=== PATIENT | female | born 1970 | race Caucasian/White ===

== ENCOUNTER 2016-05-22 06:11 | Observation (INO) ==
[2016-05-22] MEDS ORDERED: Clindamycin 900 MG/50 ML 900 MG/50 ML IV.SOLN IVPB ONE (06:26)
[2016-05-22] MEDS ORDERED: Ringers Solution, Lactated 1,000 ML IVC SCH (06:30)
--- NOTE | 2016-05-22 07:02 | Anesthesia Evaluation PreOp ---
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 FIBERGLASS History: Denies Any Significant HX Other Medical History: Denies Any Significant HX Anesthesia History: No Prior Anesthetic Complications, Past Anesthesia (D&C x2, mild nausea) Alcohol Use: none Drug use: none Medications and Allergies Norgestimate-Ethinyl Estradiol [Sprintec 28 Day Tablet] 1 tab PO DAILY 05/22/16 [History] Olmesartan Medoxomil [Benicar] 7.5 mg PO DAILY 05/22/16 [History] Simvastatin [Zocor] 10 mg PO HS 05/22/16 [History] Allergies Penicillins [PCN] Allergy (Mild, Verified 05/22/16 06:52) Hives sulfamethoxazole [From Bactrim] Allergy (Mild, Verified 05/22/16 06:52) Hives trimethoprim [From Bactrim] Allergy (Mild, Verified 05/22/16 06:52) Hives hydrochlorothiazide Adverse Reaction (Verified 05/22/16 06:52) Dizziness Increase blood pressure, - Meds/Allergy Pre-op Review Medications Reviewed: Yes Allergies Reviewed: Yes Beta Blockers on Current Med List: No Anesthesia Results - Labs Laboratory Tests 02/22/15 02/22/15 05/15/16 08:50 08:50 11:20 Hgb 13.3 Hct 38.4 Plt Count 298 Sodium 139 Potassium 4.1 BUN 9 Creatinine 0.75 - Imaging EKG: report reviewed (nsr) Anesthesia Exam Selected Entries 05/22/16 06:29 Temperature 98.1 F Pulse Rate 109 Respiratory Rate 20 Blood Pressure 157/73 O2 Sat by Pulse Oximetry 99 Height: 62in Weight: 121lbs NPO (# of Hours): 8 Pain Scale: 0 Pain Scale Used: Numeric (1 - 10) - HEENT Pupil (Motor): EOMI Mallampati: II Teeth: Normal Oral Opening: Greater than 3 - QUALITY TECHNICIAN FIBERGLASS LOC: Oriented QUALITY TECHNICIAN FIBERGLASS Motor: Normal RUE, Normal LUE, Normal RLE, Normal LLE, Normal Face QUALITY TECHNICIAN FIBERGLASS Sensory: Normal: RUE, LUE, RLE, LLE, Face - Cardiac Rhythm: Regular Murmur: None - Pulmonary Breath Sounds: bilateral Clear Respiratory Effort: Symmetrical Anesthesia Assess/Plan ASA Score: 1 Modified Yesica Scale for Level of Consciousness: Cooperative, oriented, and tranquil Anesthetic Plan: General Monitoring Plan: Standard Monitors Recovery Plan: PACU (Discussed risks of GA, questions answered, agrees to proceed.)
[2016-05-22] MEDS ORDERED: Ondansetron 4 MG/2 ML VIAL ONE (07:09)
[2016-05-22] MEDS ORDERED: *HR* Midazolam HCl 2 MG/2 ML VIAL ONE (07:09)
[2016-05-22] MEDS ORDERED: *HR* Phenylephrine 10 MG/ML VIAL ONE (07:09)
[2016-05-22] MEDS ORDERED: *HR* FentaNYL (PF) 100 MCG/2 ML VIAL ONE (07:09)
[2016-05-22] MEDS ORDERED: Dexamethasone 4 MG/ML VIAL ONE (07:09)
[2016-05-22] MEDS ORDERED: *HR* Succinylcholine 200 MG/10 ML VIAL IVP ONE (07:09)
[2016-05-22] MEDS ORDERED: *HR* Propofol 200 MG/20 ML VIAL IVP ONE (07:09)
[2016-05-22] MEDS ORDERED: Lidocaine -MPF 2% 2 ML VIAL ONE (07:09)
[2016-05-22] MEDS ORDERED: *HR* Rocuronium Bromide 50 MG/5 ML VIAL ONE (07:09)
[2016-05-22] MEDS ORDERED: *HR* Belladonna Alkaloids/Opium 30 MG RECTAL SUPPOSITORY RC ONE (07:24)
[2016-05-22] MEDS ORDERED: Bupivacaine/EPI 1:200k 0.25%PF 30 ML VIAL ONE (07:25)
--- NOTE | 2016-05-22 07:28 | History & Physical Report ---
Date of Encounter: 05/22/16 Time of Encounter: 07:27 24 Hour HP Update - Instructions Instructions: If the History and Physical is less than 30 days old and was completed prior to A.M. admission and or procedure and has NOT been updated on calendar day of procedure please complete this update prior to performing procedure. - Update Patient reports changes in Medical Condition: No Changes in assessment/condition: No Changes in Medication: No Preop tests/diagnostics Reviewed: Yes Surgery Remains Indicated: Yes Consent for Planned Operative Procedure(s) Verified: Yes - Pre-Operative Checklist Preoperative Checklist Indicated: Yes Prophylactic Antibiotic Ordered: Yes Home Medications Include Beta Donaldo: No Beta Donaldo Taken Today (Day of Surgery): No Beta Donaldo Taken Yesterday (Day Prior to Surgery): No Is VTE Prophylaxis Indicated?: Yes - Attending Attestation maurice gonzalez md facog
[2016-05-22] MEDS ORDERED: *HR* Morphine Sulfate/PF 10 MG/10 ML AMPUL ONE (07:53)
[2016-05-22] MEDS ORDERED: *HR* HYDROmorphone (PF) 1 MG/ML SYRINGE IVP PRN (08:21)
[2016-05-22] MEDS ORDERED: Ondansetron 4 MG/2 ML VIAL IVP ONE (08:21)
[2016-05-22] MEDS ORDERED: *HR* Morphine 2 MG/ML SYRINGE IVP PRN (08:21)
[2016-05-22] MEDS ORDERED: *HR* Promethazine 25 MG/ML VIAL IVP PRN (08:21)
[2016-05-22] MEDS ORDERED: Ketorolac 30 MG/ML VIAL ONE (08:40)
[2016-05-22] MEDS ORDERED: Neostigmine Methylsulfate 3 MG/3 ML SYRINGE ONE (08:40)
--- NOTE | 2016-05-22 09:47 | OB/GYN Procedure Note ---
Hysterectomy - Diagnosis Date of procedure: 05/22/16 Hysterectomy pre-op: abnormal uterine bleeding, symptomatic leiomyomata, symptomatic prolapse, other (Adenomyosis) Post-op diagnosis: same - Procedure Hysterectomy procedure: lap assisted vaginal hysterectomy, right salpingo oophorectomy, other (LEFT salpingectomy) Surgeon: Bonifacio Lerma Imagery Intelligence: Terri Haddad Anesthesia provider: Jose Bishop Anesthesia Type: Spinal (GETA) Estimated blood loss (cc): 300 Complications: none Fluids: crystalloid Urine output (cc): 300 Specimens: right ovary, uterus, cervix, right fallopian tube, left fallopian tube Findings: Areas consistent with adenomyosis were noted on the fundus of the uterus. The left fallopian tube and ovary appeared normal. The right fallopian tube was adherent to the right ovary. Appendix was retrocecal. Liver appeared normal. Disposition: PACU Narrative: Patient was taken to the operating room. After satisfactory anesthesia was achieved, she was placed in dorsolithotomy position and prepped and draped in usual manner. After appropriate timeout, Paieg catheter was inserted. Anterior lip of the cervix grasped single-toothed tenaculum. A Diego cannula was inserted. Pneumoperitoneum was created. Trochars were inserted. The infundibulopelvic ligament on the right side was coagulated and cut. This was carried across the round ligament was clamped and cut. Bladder flap created anteriorly. The left fallopian tube was removed and sent to pathology for analysis. Round ligaments coagulated and cut. Bladder flap created anteriorly. We then started the vaginal part of the procedure. Cervix was grasped with double-tooth tenaculums. Cervix was injected with Marcaine solution. Mucosa was incised circumferentially. Posterior cul-de-sac was entered. Uterosacral ligaments were clamped cut and suture-ligated with 0 Monocryl. Cardinal ligament pedicles were coagulated on both sides and cut. The anterior cul-de- sac was entered. The remainder of the broad ligament was coagulated. Uterus cervix and attached right adnexa were sent to pathology for analysis. The mucosa was closed with 0 Monocryl in a [id number] fashion. The pelvis is inspected and no bleeding was appreciated. Trochars were removed. Gas was removed. Incisions were closed with 3-0 Monocryl in a subcuticular manner. Sterile dressing was applied. Paige catheter was removed. Patient was taken to recovery room in satisfactory condition. Counts were correct.
[2016-05-22] MEDS ORDERED: EPHEDrine 50 MG/ML VIAL ONE (10:14)
[2016-05-22] MEDS ORDERED: *HR* OxyCODONE/APAP 5/325 TABLET PO PRN (11:24)
[2016-05-22] MEDS ORDERED: Sennosides 8.6 MG TABLET PO PRN (11:24)
[2016-05-22] MEDS ORDERED: Naloxone 0.4 MG/ML INJ IVP PRN ×2 (11:24)
[2016-05-22] MEDS ORDERED: Ringers Solution, Lactated 1,000 ML ONE (15:11)
[2016-05-23] MEDS: *HR* HYDROcodone/Acet 5/325 mg TABLET PO PRN ×2 (00:55→07:51)
[2016-05-23 04:26] LABS: Basophils % 0.1 %; Eosinophils % 0.1 %; Hematocrit 21.3 % (35.3-44.9); Immature Granulocytes % 0.4 % (0-4); Lymphocytes # 1.8 K/mcL (0.6-4.6); Lymphocytes % 13.1 %; Mean Corpuscular HGB Conc 32.9 g/dL (31.6-35.5); Mean Corpuscular Hemoglobin 30.3 pg (28.0-33.3); Mean Corpuscular Volume 92.2 fL (83.0-100.0); Mean Platelet Volume 9.9 fL (9.4-12.4); Monocytes # 1.3 K/mcL (0.0-1.3); Monocytes % 9.3 %; Neutrophils # 10.9 K/mcL (1.6-8.9); Platelet Count 231 K/mcL (140-400); Red Blood Count 2.31 M/mcL (3.82-4.97); Red Cell Distribution Width 13.6 % (11.5-14.5)
[2016-05-23 04:36] LABS: eGFR For African Americans > 60 (> 60); eGFR For Non-African Americans > 60 (> 60)
[2016-05-23 05:48] LABS: Basophils % 0.1 %; Eosinophils % 0.2 %; Hematocrit 22.2 % (35.3-44.9); Hemoglobin 7.2 g/dL (11.5-15.4); Immature Granulocytes % 0.4 % (0-4); Lymphocytes # 1.7 K/mcL (0.6-4.6); Mean Corpuscular HGB Conc 32.4 g/dL (31.6-35.5); Mean Corpuscular Hemoglobin 29.8 pg (28.0-33.3); Mean Corpuscular Volume 91.7 fL (83.0-100.0); Monocytes # 1.1 K/mcL (0.0-1.3); Monocytes % 8.8 %; Neutrophils # 9.4 K/mcL (1.6-8.9); Platelet Count 244 K/mcL (140-400); Red Blood Count 2.42 M/mcL (3.82-4.97); Red Cell Distribution Width 13.6 % (11.5-14.5); Segmented Neutrophils % 76.5 %
--- NOTE | 2016-05-23 07:56 | OB/GYN Progress Note ---
Date of Encounter: 05/23/16 Time of Encounter: 07:54 - Assessment and Plan (1) Anemia Current Visit: Yes Status: Acute will t/s Qualifiers: Anemia type: other cause Other causes of anemia: acute posthemorrhagic Qualified Code(s): D62 - Acute posthemorrhagic anemia (2) Status post laparoscopic assisted vaginal hysterectomy (LAVH) Current Visit: Yes Status: Acute (3) Distended abdomen Current Visit: Yes Status: Acute will obtain CT Subjective - Subjective Interval history: Patient c/o no appetite , mild nausea , and minimal pain . Objective - Vital Signs Latest vital signs: Vital Signs Temp Pulse Pulse Resp BP Pulse Ox 05/23/16 04:52 98.4 F 95 14 110/67 100 05/23/16 00:57 98.3 F 94 16 111/63 98 05/22/16 20:30 98.1 F 92 16 111/65 98 05/22/16 15:13 97.8 F 102 80 14 100/56 100 05/22/16 13:43 98.1 F 87 80 16 91/55 100 05/22/16 13:42 98.1 F 87 16 91/55 100 05/22/16 12:45 97.5 F L 88 80 16 98/61 100 05/22/16 12:21 97.5 F L 79 80 16 88/54 99 05/22/16 12:19 97.5 F L 79 16 88/54 99 05/22/16 11:45 97.9 F 89 16 91/56 99 05/22/16 11:20 82 16 103/57 100 05/22/16 11:10 97.0 F L 89 16 103/50 100 05/22/16 11:00 86 16 105/52 100 05/22/16 10:50 91 16 107/48 100 05/22/16 10:40 80 16 104/50 100 05/22/16 10:30 97.0 F L 84 16 108/49 100 05/22/16 10:20 71 16 109/53 100 05/22/16 10:10 62 16 63/29 100 05/22/16 10:00 97.0 F L 102 22 122/62 100 Intake and Output 05/22/16 05/22/16 05/23/16 15:59 23:59 07:59 Intake Total 50 / 50 300 / 300 Output Total 600 / 600 500 / 500 Balance -550 / -550 -500 / -500 300 / 300 Intake: IV Fluids 50 / 50 Cleocin 900 MG/50 ML 900 50 / 50 mg In 50 ml @ 100 mls/hr IVPB PREOP ONE Rx#: [id number] Oral 300 / 300 Output: Urine 500 / 500 Estimated Blood Loss 300 / 300 Urine Amount (Catheter) 300 / 300 Other: Weight 56.9 kg Patient Weight 05/23/16 23:59 Weight 56.9 kg - I&O's I&O's: Intake & Output 05/20/16 05/21/16 05/22/16 05/23/16 23:59 23:59 23:59 23:59 Intake Total 50 / 50 300 / 300 Output Total 1100 / 1100 Balance -1050 / -1050 300 / 300 Weight 55.338 kg 56.9 kg - Exam Lungs: bilateral: normal Chest: Normal S1, Normal S2 Extremities: Present: normal Abdomen: Present: distention, tenderness Incision OB: Present: dry, intact - Labs Labs: Abnormal lab results WBC 12.3 K/mcL (4.3-11.1) H 05/23/16 05:32 RBC 2.42 M/mcL (3.82-4.97) L 05/23/16 05:32 Hgb 7.2 g/dL (11.5-15.4) L 05/23/16 05:32 Hct 22.2 % (35.3-44.9) L 05/23/16 05:32 Neutrophils # 9.4 K/mcL (1.6-8.9) H 05/23/16 05:32 Consult Discharge Plan - Plan Referrals: Alexa Conroy, [employer] [Primary Care Provider] -
[2016-05-23] MEDS ORDERED: OLMESARTAN MEDOXOMIL PO SCH (09:00)
[2016-05-23] MEDS ORDERED: *HR* FentaNYL (PF) 100 MCG/2 ML VIAL ONE (11:08)
[2016-05-23] MEDS ORDERED: *HR* Succinylcholine 200 MG/10 ML VIAL IVP ONE (11:08)
[2016-05-23] MEDS ORDERED: Dexamethasone 4 MG/ML VIAL ONE (11:08)
[2016-05-23] MEDS ORDERED: Lidocaine -MPF 2% 2 ML VIAL ONE (11:08)
[2016-05-23] MEDS ORDERED: Ondansetron 4 MG/2 ML VIAL ONE (11:08)
[2016-05-23] MEDS ORDERED: *HR* Midazolam HCl 2 MG/2 ML VIAL ONE (11:08)
[2016-05-23] MEDS ORDERED: Propofol 500 MG/50 ML INFUS..BTL ONE (11:09)
--- NOTE | 2016-05-23 11:26 | OB/GYN Progress Note ---
Date of Encounter: 05/23/16 Time of Encounter: 11:23 - Assessment and Plan (1) Anemia Current Visit: Yes Status: Acute will t/s will proceed with type and crossmatch and transfuse 2 units when available. Qualifiers: Anemia type: other cause Other causes of anemia: acute posthemorrhagic Qualified Code(s): D62 - Acute posthemorrhagic anemia (2) Status post laparoscopic assisted vaginal hysterectomy (LAVH) Current Visit: Yes Status: Acute (3) Distended abdomen Current Visit: Yes Status: Acute will obtain CT CT Scan reveals that appears be active bleeding. Risk and benefits of diagnostic laparoscopy possible laparotomy was discussed with patient and her . Subjective - Subjective Interval history: Patient CAT scan reviewed with radiologist. It appears that she has active bleeding. Management discussed Objective - Vital Signs Latest vital signs: Vital Signs Temp Pulse Pulse Resp BP Pulse Ox 05/23/16 08:05 98.1 F 97 16 104/59 98 05/23/16 04:52 98.4 F 95 14 110/67 100 05/23/16 00:57 98.3 F 94 16 111/63 98 05/22/16 20:30 98.1 F 92 16 111/65 98 05/22/16 15:13 97.8 F 102 80 14 100/56 100 05/22/16 13:43 98.1 F 87 80 16 91/55 100 05/22/16 13:42 98.1 F 87 16 91/55 100 05/22/16 12:45 97.5 F L 88 80 16 98/61 100 05/22/16 12:21 97.5 F L 79 80 16 88/54 99 05/22/16 12:19 97.5 F L 79 16 88/54 99 05/22/16 11:45 97.9 F 89 16 91/56 99 Intake and Output 05/22/16 05/23/16 05/23/16 23:59 07:59 15:59 Intake Total 300 / 300 Output Total 500 / 500 500 / 500 Balance -500 / -500 300 / 300 -500 / -500 Intake: Oral 300 / 300 Output: Urine 500 / 500 500 / 500 Other: Weight 56.9 kg Patient Weight 05/23/16 23:59 Weight 56.9 kg - I&O's I&O's: Intake & Output 02/0705/21/16 05/22/16 05/23/16 23:59 23:59 23:59 23:59 Intake Total 50 / 50 300 / 300 Output Total 1100 / 1100 500 / 500 Balance -1050 / -1050 -200 / -200 Weight 55.338 kg 56.9 kg - Exam Abdomen: Present: distention - Labs Labs: Abnormal lab results WBC 12.3 K/mcL (4.3-11.1) H 05/23/16 05:32 RBC 2.42 M/mcL (3.82-4.97) L 05/23/16 05:32 Hgb 7.2 g/dL (11.5-15.4) L 05/23/16 05:32 Hct 22.2 % (35.3-44.9) L 05/23/16 05:32 Neutrophils # 9.4 K/mcL (1.6-8.9) H 05/23/16 05:32 Consult Discharge Plan - Plan Referrals: Alexa Conroy, [employer] [Primary Care Provider] -
[2016-05-23] MEDS ORDERED: Lidocaine -MPF 4% 5 ML AMPUL ONE (11:28)
[2016-05-23] MEDS ORDERED: Bupivacaine/EPI 1:200k 0.25%PF 10 ML VIAL INFILT ONE (12:06)
[2016-05-23] MEDS ORDERED: 0.9 % Sodium Chloride 1,000 ML IVC SCH (12:30)
[2016-05-23] MEDS ORDERED: Clindamycin 900 MG/50 ML 900 MG/50 ML IV.SOLN IVPB ONE (12:43)
[2016-05-23] MEDS ORDERED: *HR* Rocuronium Bromide 50 MG/5 ML VIAL ONE (13:02)
[2016-05-23] MEDS ORDERED: *HR* HYDROmorphone 2 MG/ML SYRINGE ONE (13:21)
[2016-05-23] MEDS ORDERED: *HR* Promethazine 25 MG/ML VIAL IVP PRN (13:24)
[2016-05-23] MEDS ORDERED: *HR* HYDROmorphone (PF) 1 MG/ML SYRINGE IVP PRN (13:24)
[2016-05-23] MEDS ORDERED: Ketorolac 30 MG/ML VIAL ONE (13:36)
[2016-05-23] MEDS ORDERED: Neostigmine Methylsulfate 3 MG/3 ML SYRINGE ONE (13:40)
--- NOTE | 2016-05-23 13:56 | OB/GYN Procedure Note ---
Laparoscopy Procedure - Diagnosis Date of procedure: 05/23/16 Pre-op diagnosis: other (postop bleeding) Post-op diagnosis: same - Procedure Laparoscopy procedure: diagnostic laparoscopy, other (Drainage of pelvic hematoma) Surgeon: Bonifacio Lerma Barrel Inspector Tight: Terri Haddad Anesthesia provider: Ezekiel Dominguez Anesthesia Type: General Estimated blood loss (cc): 10 Complications: none Urine output (cc): 700 Findings: Approximately 700 mL of clotted blood was noted in the pelvis. No active bleeding was appreciated from either side wall , vaginal cuff, or left ovary. Disposition: PACU Narrative: Patient was taken to the operating room. After satisfactory anesthesia was achieved, she is placed in dorsolithotomy position and prepped and draped in usual manner. After appropriate timeout, Paige catheter was inserted. Pneumoperitoneum was created. Clots were suctioned and removed and total approximately 700 mL. Once the clots were removed, the pelvic sidewalls were carefully inspected. There was one area consistent with a vein in the left pelvic sidewall that appeared to be thrombosed. This venous structure was coagulated. After thorough irrigation and inspection, FloSeal was placed on the raw areas particularly on the left side. After assurance of hemostasis, gas was removed and ports were removed. The incisions were closed with 3-0 Monocryl in a subcuticular manner. Sterile dressing was applied. Patient did well and was taken to recovery room in satisfactory condition. Counts were correct.
[2016-05-23 14:38] LABS: Hematocrit 25.1 % (35.3-44.9); Hemoglobin 8.4 g/dL (11.5-15.4)
[2016-05-23] MEDS ORDERED: *HR* HYDROmorphone 2 MG/ML SYRINGE IVP PRN (15:07)
[2016-05-23] MEDS ORDERED: Naloxone 0.4 MG/ML INJ IVP PRN (15:07)
--- NOTE | 2016-05-23 15:08 | Anesthesia Evaluation Post Op ---
Date of Encounter: 05/23/16 Time of Encounter: 15:05 - Vital Signs Vital Signs: vss - Lungs Lungs: Clear Ascult./Percussion - Airway Airway: Non-obstructed - Cardiovascular Baseline Rhythm - Mental Status Mental Status: Alert & Oriented, Answers Appropriately - Pain Pain Scale used: Aldo (Faces) - Nausea Vomiting Nausea Vomiting: Not Present - Discharge PostOp Status: Transfer Patient to floor
[2016-05-23] MEDS ORDERED: *HR* HYDROcodone/Acet 5/325 mg TABLET PO PRN (15:56)
[2016-05-23] MEDS ORDERED: D5% in Lactated Ringers 1,000 ML IVC SCH (16:00)
[2016-05-23] MEDS: *HR* OxyCODONE/APAP 5/325 TABLET PO PRN ×2 (16:27→20:29)
[2016-05-24] MEDS: *HR* OxyCODONE/APAP 5/325 TABLET PO PRN ×2 (00:19→04:18)
[2016-05-24 04:22] LABS: Basophils % 0.2 %; Hematocrit 24.7 % (35.3-44.9); Hemoglobin 8.2 g/dL (11.5-15.4); Immature Granulocytes % 0.3 % (0-4); Immature Platelets 2.6 % (1.1-6.1); Lymphocytes # 1.4 K/mcL (0.6-4.6); Lymphocytes % 13.8 %; Mean Corpuscular HGB Conc 33.2 g/dL (31.6-35.5); Mean Corpuscular Hemoglobin 29.5 pg (28.0-33.3); Mean Corpuscular Volume 88.8 fL (83.0-100.0); Mean Platelet Volume 9.9 fL (9.4-12.4); Monocytes # 0.8 K/mcL (0.0-1.3); Monocytes % 7.5 %; Neutrophils # 8.1 K/mcL (1.6-8.9); Platelet Count 228 K/mcL (140-400); Red Blood Count 2.78 M/mcL (3.82-4.97); Red Cell Distribution Width 15.1 % (11.5-14.5); Segmented Neutrophils % 78.2 %
--- NOTE | 2016-05-24 07:41 | Discharge Summary ---
Date of Encounter: 05/24/16 Time of Encounter: 07:41 - Discharge Diagnosis (1) Status post laparoscopic assisted vaginal hysterectomy (LAVH) Priority: Primary Status: Acute (2) Anemia Priority: Secondary Status: Acute Comments: Hgb=8.2 this AM and stable. Pt is asymptomatic. Qualifiers: Anemia type: other cause Other causes of anemia: acute posthemorrhagic Qualified Code(s): D62 - Acute posthemorrhagic anemia (3) Distended abdomen Priority: Secondary Status: Resolved - Discharge Medications Prescriptions: HYDROcodone/Acet 5/325 mg [[place] 5-325 mg] 1 tab PO Q4HR PRN #40 tablet PRN Reason: MODERATE PAIN (4-6) Home Medications: Norgestimate-Ethinyl Estradiol [Sprintec 28 Day Tablet] 1 tab PO DAILY 05/22/16 [History] Olmesartan Medoxomil [Benicar] 7.5 mg PO DAILY 05/22/16 [History] Simvastatin [Zocor] 10 mg PO HS 05/22/16 [History] HYDROcodone/Acet 5/325 mg [[place] 5-325 mg] 1 tab PO Q4HR PRN #40 tablet [Rx] Allergies/Adverse Reactions: Allergies Penicillins [PCN] Allergy (Mild, Verified 05/22/16 06:52) Hives sulfamethoxazole [From Bactrim] Allergy (Mild, Verified 05/22/16 06:52) Hives trimethoprim [From Bactrim] Allergy (Mild, Verified 05/22/16 06:52) Hives hydrochlorothiazide Adverse Reaction (Verified 05/22/16 06:52) Dizziness Increase blood pressure, Data Procedures and tests throughout hospitalization: Laboratory Tests 05/23/16 05/23/16 05/23/16 04:07 04:07 05:32 WBC 14.1 H 12.3 H RBC 2.31 L 2.42 L Hgb 7.0 L 7.2 L Hct 21.3 L 22.2 L MCV 92.2 91.7 MCH 30.3 29.8 MCHC 32.9 32.4 RDW 13.6 13.6 Plt Count 231 244 MPV 9.9 10.0 Immature Gran % 0.4 0.4 Seg Neutrophils % 77.0 76.5 Lymphocytes % 13.1 14.0 Monocytes % 9.3 8.8 Eosinophils % 0.1 0.2 Basophils % 0.1 0.1 Neutrophils # 10.9 H 9.4 H Lymphocytes # 1.8 1.7 Monocytes # 1.3 1.1 Eosinophils # 0.0 0.0 Basophils # 0.0 0.0 Immature Plt Fraction Creatinine 0.61 Est GFR ( Amer) > 60 Est GFR (Non-Af Amer) > 60 Blood Type Antibody Screen Crossmatch MTS Gel Crossmatch 05/23/16 05/23/16 05/24/16 08:37 14:13 04:13 WBC 10.4 RBC 2.78 L Hgb 8.4 L 8.2 L Hct 25.1 L 24.7 L MCV 88.8 MCH 29.5 MCHC 33.2 RDW 15.1 H Plt Count 228 MPV 9.9 Immature Gran % 0.3 Seg Neutrophils % 78.2 Lymphocytes % 13.8 Monocytes % 7.5 Eosinophils % 0.0 Basophils % 0.2 Neutrophils # 8.1 Lymphocytes # 1.4 Monocytes # 0.8 Eosinophils # 0.0 Basophils # 0.0 Immature Plt Fraction 2.6 Creatinine Est GFR ( Amer) Est GFR (Non-Af Amer) Blood Type A NEGATIVE Antibody Screen NEGATIVE Crossmatch See Detail MTS Gel Crossmatch See Detail Labs on day of discharge: Labs from last 24 hours 05/24/16 05/23/16 05/23/16 04:13 14:13 08:37 WBC 10.4 RBC 2.78 L Hgb 8.2 L 8.4 L Hct 24.7 L 25.1 L MCV 88.8 MCH 29.5 MCHC 33.2 RDW 15.1 H Plt Count 228 MPV 9.9 Immature Gran % 0.3 Seg Neutrophils % 78.2 Lymphocytes % 13.8 Monocytes % 7.5 Eosinophils % 0.0 Basophils % 0.2 Neutrophils # 8.1 Lymphocytes # 1.4 Monocytes # 0.8 Eosinophils # 0.0 Basophils # 0.0 Immature Plt Fraction 2.6 Blood Type A NEGATIVE Antibody Screen NEGATIVE Crossmatch See Detail MTS Gel Crossmatch See Detail - Impressions ITS Impressions Abdomen/Pelvis CT 05/23/16 10:30 IMPRESSION: Moderate acute pelvic peritoneal hemorrhage with some left jose pelvic changes which may represent active venous hemorrhage. There is no active arterial hemorrhage identified. Mild ascites and postsurgical free air. Mild bilateral pleural effusions with basilar atelectasis. Results of the examination were discussed with Dr. Lerma on 05/23/2016, at 10:53 a.m. 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 Absent: rales, rhonchi, wheezes - Cardiovascular Cardiovascular exam IM: Present: RRR, +S1, +S2. Absent: diastolic murmur, systolic murmur - GI/Abdominal GI/Abdominal exam IM: normal bowel sounds, soft, no peritoneal signs Incision: dry, intact, dressed (steri-strips) - Rectal Rectal exam: deferred - Extremities Exam Extremities exam IM: Present: full ROM, normal inspection - Neurological Exam Neurological exam: alert, CN II-XII intact - VTE Documentation of Mechanical Device: Intermittent pneumatic compression device - Attending Attestation Bonifacio Lerma MD, FACOG
[2016-05-24] MEDS ORDERED: FLU VACC QS2016-17 36MOS UP/PF 0.5 ML SYRINGE IM ONE (08:10)
[2016-05-24 08:17] VITALS: BP 152/75
== END 2016-05-24 08:30 | disposition home or self-care (01) ==
LOC: SAMDAY 06:11 → 1NENUOBS 06:11
PROVIDERS: ADMIT Obstetrics & Gynecology; ATTEND Obstetrics & Gynecology
PROC: GYNLAVH (ICD-10-PCS; 2016-05-22 07:45)